=== PATIENT | female | born 1965 | race Caucasian/White ===

== ENCOUNTER → 2017-02-26 | Outpatient (CLI) | payer BC, SELFPAY | LOC: ECHO 12:14 → NM 13:00 | DX: R07.9 Chest pain, unspecified (principal); I51.7 Cardiomegaly; R42 Dizziness and giddiness; R51 Headache; R94.31 Abnormal electrocardiogram [ECG] [EKG]; R06.02 Shortness of breath; R06.00 Dyspnea, unspecified; I10 Essential (primary) hypertension | CPT/HCPCS: ECHO; 78452; 93017; 93306; A9502; J2785 ==